=== PATIENT | female | born 1990 | race Caucasian/White ===

== ENCOUNTER 2022-12-04 12:42 | Emergency (ER) | payer BC ==
[2022-12-04] MEDS ORDERED: SODIUM CHLORIDE 0.9% 1,000 ML IV STA (13:07)
--- NOTE | 2022-12-04 13:22 | ED Physician Documentation ---
PD HPI CHEST PAIN - Stated complaint Stated Complaint: CHEST PX - Chief complaint Chief Complaint: Cardiac - History obtained from History obtained from: Patient - Additional information Additional information: Patient is a 32-year-old female presenting for evaluation of chest pain. She was recently found to have frequent PVCs and is scheduled to see an support services manager on Thursday at [facility].Patient reports her chest pain started when she woke up this morning at 5:00. It feels like a sharp pain in the left side of her chest and it has been constant since she woke at 5 AM without any periods where she has not felt the pain. It does not radiate elsewhere. Nothing makes it better or worse.She denies a prior history of chest pains or similar symptoms. She denies associated dizziness, difficulty breathing, nausea, vomiting. Earlier this year she was being evaluated by her PCP and an annual exam when she was asked about an irregular heartbeat. She was then sent to a marine steam fitter who noted that she was having PVCs. She had a Holter monitor which showed that she was having PVCs approximately 25% of the time. In late October she had a treadmill stress test and echo which she stat es had no abnormalities. She was started on metoprolol 25 mg twice daily but this dose was making her feel lightheaded so they have reduce the dose to 12.5 mg twice daily which she has been taking for the past 2 weeks.She denies recent illness, caffeine use, alcohol use, cold medication use, vomiting, diarrhea.She did send a message to her marine steam fitter today at [place]. Auto Body Repairman name is Dr. Regulo Brooks. Review of Systems Constitutional: denies: Fever Cardiac: reports: Chest pain / pressure, Palpitations Respiratory: denies: Dyspnea GI: denies: Abdominal Pain, Vomiting Musculoskeletal: denies: Back pain Neurologic: denies: Headache PD PAST MEDICAL HISTORY - Allergies Allergies/Adverse Reactions: Allergies Allergy/AdvReac Type Severity Reaction Status Date / Time No Known Drug Allergies Allergy Verified 12/04/22 12:53 PD ED PE NORMAL - General General: Alert and oriented X 3, No acute distress, Well developed/nourished - HEENT HEENT: Atraumatic - Neck Neck: Supple, no meningeal sign - Cardiac Cardiac: No murmur, Strong equal pulses, Other (Regular rhythm, normal rate) - Respiratory Respiratory: No respiratory distress, Clear bilaterally - Abdomen Abdomen: Soft, Non tender, Non distended - Derm Derm: Warm and dry - Extremities Extremities: No edema, No calf tenderness / cord Results - Vitals Vitals: Vital Signs - 24 hr 12/04/22 12/04/22 12/04/22 12:49 13:36 14:56 Temperature 37.0 C Heart Rate 78 84 83 Respiratory 20 20 23 Rate Blood Pressure 126/78 125/86 H O2 Saturation 98 100 100 Oxygen O2 Source Room air - EKG (time done) 1247 EKG releavant findings:: EKG personally interpreted by author of this note. Relevant findings are: Rate 90, sinus rhythm with ventricular bigeminy, no STEMI, no prior for comparison Rhythm: NSR Ischemia: T wave inversion (V1, V2). No: ST elevation c/w ischemia Other comments: Other comments (Bigeminy) Compare to prior EKG: Old EKG unavailable - Labs Labs: Laboratory Tests 12/04/22 12/04/22 12/04/22 13:28 13:28 13:28 WBC 8.0 RBC 4.89 Hgb 14.7 Hct 43.1 MCV 88.1 MCH 30.1 MCHC 34.1 RDW 12.0 Plt Count 226 MPV 9.3 Neut # (Auto) 5.6 Lymph # (Auto) 2.0 [place] # (Auto) 0.4 Eos # (Auto) 0.0 Baso # (Auto) 0.0 Absolute Nucleated RBC 0.00 Nucleated RBC % 0.0 Sodium 136 Potassium 3.9 Chloride 107 Carbon Dioxide 23 Anion Gap 6.0 BUN 11 Creatinine 0.7 Estimated GFR (MDRD) 97 Glucose 196 H Calcium 9.4 Magnesium 2.0 Total Bilirubin 0.8 AST 20 ALT 17 Alkaline Phosphatase 48 Troponin I High Sens < 2.3 L Total Protein 7.6 Albumin 4.0 Globulin 3.6 Albumin/Globulin Ratio 1.1 TSH Serum HCG, Qual 12/04/22 12/04/22 13:28 13:28 WBC RBC Hgb Hct MCV MCH MCHC RDW Plt Count MPV Neut # (Auto) Lymph # (Auto) [place] # (Auto) Eos # (Auto) Baso # (Auto) Absolute Nucleated RBC Nucleated RBC % Sodium Potassium Chloride Carbon Dioxide Anion Gap BUN Creatinine Estimated GFR (MDRD) Glucose Calcium Magnesium Total Bilirubin AST ALT Alkaline Phosphatase Troponin I High Sens Total Protein Albumin Globulin Albumin/Globulin Ratio TSH 2.22 Serum HCG, Qual NEGATIVE PD Medical Decision Making - ED course Complexity details: reviewed results, d/w patient ED course: Patient is a 32-year-old female presenting for evaluation of chest pain. She has recently undergone evaluations for frequent PVCs.Her vital signs are stable. Her EKG demonstrates ventricular bigeminy. Her labs were obtained including electrolytes and TSH and troponin which were unremarkable. She has a negative troponin in the setting of pain for greater than 6 hours. She also has no known risk factors for ACS and has had unremarkable recent outpatient testing including a negative stress treadmill test and echocardiogram. She has not had other episodes of chest pain to suggest that this is unstable angina. She has a PERC negative. I doubt a dissection as pain is not migratory and very localized to a specific area.I reviewed her chest x-ray and do not see signs of an enlarged heart or consolidation. I did speak with her marine steam fitter. She is scheduled for an outpatient evaluation in a few days for possible PVC ablation which is what he feels she needs. He also agrees that this is likely not ischemic or cardiac chest pain. He recommends patient continue with her metoprolol.Patient denies any change in her symptoms here.She remains having of frequent PVCs on the cafeteria monitor. Per her marine steam fitter, she was noted to have bigeminy on outpatient evaluations as well. Patient is comfortable with plan for discharged. However she is also advised on strict return precautions if her symptoms worsen or if She develops new symptoms. 1453 - D/W Dr. Brooks (Cardiology)- Reviewed patient's presentation, EKG, labs. He does not feel that this is cardiac/ischemic chest pain That her recent evaluations with a stress test and echocardiogram are also reassuring. He feels that she is stable for discharge and Should follow-up with the support services manager on Thursday. He states that she can continue with her metoprolol dose as is.He is appreciative for the phone call. Departure - Departure Disposition: Home, Self Care Clinical Impression: Chest pain, Ventricular bigeminy Condition: Stable Instructions: Premature Ventricular Contract Tx, ED Chest Pain Atypical Unkn Cause Follow-Up: Regulo Brooks MD [Physician No Access] - Comments: Please continue with taking your metoprolol and keep your follow-up appointment with the support services manager on Thursday.Your labs today are reassuring including normal electrolytes, thyroid test and troponin which is a marker that looks for An issue with your heart. However if it anytime you have new or worsening symptoms please return to the emergency department.Please make sure to get plenty of rest and stay hydrated. Discharge Date/Time: 12/04/22 15:08
--- NOTE | 2022-12-04 13:23 | XRAY Report ---
PROCEDURE: Chest 1 View X-Ray INDICATIONS: CP TECHNIQUE: One view of the chest was acquired. COMPARISON: None. FINDINGS: Surgical changes and devices: None. Lungs and pleura: Low lung volumes. No dense consolidation or pleural effusion. Possible mild opacit y at the right lung base. Mediastinum: Mediastinal contours appear normal. Heart size is normal. Bones and chest wall: No suspicious bony lesions. Overlying soft tissues appear unremarkable. IMPRESSION: Possible mild opacity at right lung base could represent early airspace disease versus atelectasis. C onsider future imaging surveillance to assess for resolution. Low lung volumes. Reviewed by: Rick Flores MD on 12/04/2022 1:22 PM PDT Approved by: Rick Flores MD on 12/04/2022 1:22 PM PDT Station ID: [id number]
[2022-12-04 13:37] LABS: BASOPHILS % (AUTO) 0.2 %; EOSINOPHILS % (AUTO) 0.2 %; HCT - HEMATOCRIT 43.1 % (37.0-47.0); HGB - HEMOGLOBIN 14.7 g/dL (12.0-16.0); LYMPHOCYTES % (AUTO) 24.8 %; MEAN CORPUSCULAR HEMOGLOBIN 30.1 pg (27.0-31.0); MEAN CORPUSCULAR HGB CONC 34.1 g/dL (32.0-36.0); MEAN CORPUSCULAR VOLUME 88.1 fL (81.0-99.0); MEAN PLATELET VOLUME 9.3 fL (7.9-10.8); MONOCYTES # (AUTO) 0.4 10^3/uL (0.0-1.0); MONOCYTES % (AUTO) 5.3 %; NEUTROPHILS # (AUTO) 5.6 10^3/uL (1.5-6.6); NEUTROPHILS % (AUTO) 69.3 %; PLT - PLATELET COUNT 226 10^3/uL (130-450); RED BLOOD COUNT 4.89 10^6/uL (4.20-5.40)
[2022-12-04 13:49] LABS: ALBUMIN/GLOBULIN RATIO 1.1 (1.0-2.2); BILIRUBIN,TOTAL 0.8 mg/dL (0.2-1.0); CALCIUM 9.4 mg/dL (8.5-10.3); CREATININE 0.7 mg/dL (0.4-1.0); POTASSIUM 3.9 mmol/L (3.5-5.0); TOTAL PROTEIN 7.6 g/dL (6.7-8.2)
[2022-12-04 14:33] LABS: HCG,QUALITATIVE BLOOD NEGATIVE
[2022-12-04 14:57] VITALS: BP 125/86
== END 2022-12-04 15:08 | disposition home or self-care (01) ==
LOC: ED 12:42
DX: R00.8 Other abnormalities of heart beat (principal)
CPT/HCPCS: 36415; 80053; 83735; 84443; 84484; 84703; 85025; 93005; 99284

== ENCOUNTER 2023-07-05 21:47 | Emergency (ER) | payer BC ==
[2023-07-05] MEDS ORDERED: SODIUM CHLORIDE 0.9% 1,000 ML IV STA (22:07)
[2023-07-05] MEDS ORDERED: ONDANSETRON 4 MG/2 ML VIAL IVP STA (22:29)
--- NOTE | 2023-07-05 22:33 | XRAY Report ---
PROCEDURE: Chest 1 View X-Ray INDICATIONS: dizzy/palpitations TECHNIQUE: One view of the chest was acquired. COMPARISON: 12/04/2022. FINDINGS: Surgical changes and devices: None. Lungs and pleura: Prominence of the pulmonary interstitium/interstitial opacities. No pleural effusi on or pneumothorax. Mediastinum: Cardiac silhouette is at the upper limits of normal in size. Bones and chest wall: No suspicious bony lesions. Overlying soft tissues appear unremarkable. IMPRESSION: Prominence of the pulmonary interstitium/interstitial opacities are present, which can be seen in the setting of interstitial edema or sequela of viral or typical infection. Reviewed by: Chepe Coombs MD on 07/05/2023 10:31 PM PDT Approved by: Chepe Coombs MD on 07/05/2023 10:31 PM PDT Station ID: [id number]
[2023-07-05 22:38] LABS: BASOPHILS % (AUTO) 0.4 %; HCT - HEMATOCRIT 40.7 % (37.0-47.0); HGB - HEMOGLOBIN 13.7 g/dL (12.0-16.0); LYMPHOCYTES % (AUTO) 55.9 %; MEAN CORPUSCULAR HEMOGLOBIN 30.1 pg (27.0-31.0); MEAN CORPUSCULAR HGB CONC 33.7 g/dL (32.0-36.0); MEAN CORPUSCULAR VOLUME 89.5 fL (81.0-99.0); MEAN PLATELET VOLUME 9.1 fL (7.9-10.8); MONOCYTES % (AUTO) 8.3 %; NEUTROPHILS % (AUTO) 33.3 %; PLT - PLATELET COUNT 263 10^3/uL (130-450); RED BLOOD COUNT 4.55 10^6/uL (4.20-5.40); RED CELL DISTRIBUTION WIDTH 11.7 % (12.0-15.0); WHITE BLOOD COUNT 9.7 x10^3/uL (4.8-10.8)
--- NOTE | 2023-07-05 22:47 | ED Physician Documentation ---
History of Present Illness - Stated complaint Stated Complaint: DIZZY, RHR after taking edible - Chief complaint Chief Complaint: Neuro - History obtained from History obtained from: Patient - Additonal information Additional information: Patient is a 32-year-old female with a history of PVCs presenting for evaluation of heart racing, dizziness, nausea, [place] sensation starting around 8:00. Patient states that she ate an edible at this time and took a full 1. Yesterday she took half of 1 to help her sleep and did not have the symptoms. She reports feeling her heart racing. She does have a history of PVCs and has a public health specialist at [place]. She saw electrophysiology earlier this year and they had her stop metoprolol. She also admits to a small glass of wine this evening. Denies recent illness. No chest pain or shortness of air. Review of Systems Constitutional: denies: Fever Cardiac: reports: Palpitations. denies: Chest pain / pressure Respiratory: denies: Dyspnea, Cough GI: reports: Nausea. denies: Abdominal Pain Neurologic: denies: Syncope PD PAST MEDICAL HISTORY - Present Medications Home Medications: Ambulatory Orders Medication Instructions Recorded Confirmed No Known Home Medications 07/05/23 07/05/23 - Allergies Allergies/Adverse Reactions: Allergies Allergy/AdvReac Type Severity Reaction Status Date / Time No Known Drug Allergies Allergy Verified 07/05/23 21:57 PD ED PE NORMAL - General General: Alert and oriented X 3, No acute distress, Well developed/nourished - HEENT HEENT: Atraumatic - Neck Neck: Supple, no meningeal sign - Cardiac Cardiac: Strong equal pulses, Other (Tachycardic, irregular) - Respiratory Respiratory: No respiratory distress, Clear bilaterally - Abdomen Abdomen: Soft, Non tender, Non distended - Derm Derm: Warm and dry - Extremities Extremities: No edema, No calf tenderness / cord - Neuro Neuro: Normal speech Results - Vitals Vitals: Vital Signs - 24 hr 07/05/23 07/05/23 07/05/23 21:52 22:30 23:25 Temperature 36.0 C L Heart Rate 112 H 96 78 Respiratory 18 21 17 Rate Blood Pressure 156/99 H 121/93 H 118/68 O2 Saturation 100 100 97 07/06/23 07/06/23 00:00 00:31 Temperature Heart Rate 77 93 Respiratory 20 22 Rate Blood Pressure 102/62 132/74 H O2 Saturation 95 97 Oxygen O2 Source Room air - EKG (time done) 2241 EKG releavant findings:: EKG personally interpreted by author of this note. Relevant findings are: Rate 83, normal sinus rhythm, frequent PVCs, no STEMI - Labs Labs: Laboratory Tests 07/05/23 07/05/23 22:30 22:30 WBC 9.7 RBC 4.55 Hgb 13.7 Hct 40.7 MCV 89.5 MCH 30.1 MCHC 33.7 RDW 11.7 L Plt Count 263 MPV 9.1 Neut # (Auto) Not Reportable Lymph # (Auto) Not Reportable [place] # (Auto) Not Reportable Eos # (Auto) Not Reportable Baso # (Auto) Not Reportable Absolute Nucleated RBC Not Reportable Total Counted 100 Band Neuts % (Manual) 1 Reactive Lymphs % (Man) 2 Abnorm Lymph % (Manual) 0 Nucleated RBC % Not Reportable Neutrophils # (Manual) 2.5 Lymphocytes # (Manual) 6.5 H Monocytes # (Manual) 0.6 Eosinophils # (Manual) 0.1 Basophils # (Manual) 0.0 Differential Comment MANUAL DIFFERENTIAL Platelet Estimate NORMAL (130-450,000) Platelet Morphology NORMAL APPEARANCE RBC Morph Micro Appear NORMAL APPEARANCE Sodium 133 L Potassium 2.9 L Chloride 102 Carbon Dioxide 26 Anion Gap 5.0 L BUN 17 Creatinine 0.9 Estimated GFR (MDRD) 73 L Glucose 162 H Calcium 9.4 Magnesium 1.6 L Total Bilirubin 0.3 AST 10 ALT 8 L Alkaline Phosphatase 55 Total Protein 7.1 Albumin 4.3 Globulin 2.8 Albumin/Globulin Ratio 1.5 PD Medical Decision Making - ED course Complexity details: reviewed results, re-evaluated patient, d/w patient ED course: Patient is a 32-year-old female with a history of PVCs presenting for evaluation of palpitations after eating an edible this evening. She initially was tachycardic but EKG demonstrates a sinus rhythm with normal rate and with frequent PVCs. No chest pain to suggest ACS or symptoms to suggest a PE. CBC, chemistries were obtained and reviewed with potassium of 2.9 and magnesium of 1.6. Replacement was given. Patient is feeling better after IV fluids, IV Zofran and Reglan for nausea. She is able to tolerate p.o. Chest x-ray was reviewed and negative for effusion or focal consolidation. She is counseled heavily on the use of substances that may trigger her PVCs or worsen them. She is feeling much better and is comfortable with plan for discharge. She is counseled on concerning symptoms to return for. Departure - Departure Disposition: 01 Home, Self Care Clinical Impression: Palpitations, PVC (premature ventricular contraction), Hypokalemia, Use of cannabinoid edibles Condition: Stable Instructions: ED Potassium Deficiency, ED Palpitations Comments: You were evaluated for palpitations after trying an edible. Your EKG shows that you are having PVCs but your heart rate has overall been in the normal range. Your potassium level was low and we did give you potassium replacement. Please consider increasing your potassium intake through foods. I would also recommend close follow-up with your primary care provider. Please avoid edibles in the future as they may cause adverse reactions such as this. Return to the ER with any worsening symptoms. Potassium is widely available in many foods, especially fruits and vegetables. Leafy greens, beans, nuts, dairy foods, and starchy vegetables like winter squash are rich sources. Dried fruits (raisins, apricots) Beans, lentils Potatoes Winter squash (acorn, butternut) Spinach, broccoli Beet greens Avocado Bananas Cantaloupe Oranges, orange juice Coconut water Tomatoes Dairy and plant milks (soy, almond) Yogurt Cashews, almonds Chicken [place] Forms: PCP List Discharge Date/Time: 07/06/23 00:35
[2023-07-05 22:57] LABS: ALBUMIN 4.3 g/dL (3.2-5.5); ALBUMIN/GLOBULIN RATIO 1.5 (1.0-2.2); BILIRUBIN,TOTAL 0.3 mg/dL (0.2-1.0); CALCIUM 9.4 mg/dL (8.5-10.3); CREATININE 0.9 mg/dL (0.6-1.3); MAGNESIUM 1.6 mg/dL (1.7-2.3); POTASSIUM 2.9 mmol/L (3.5-4.5); TOTAL PROTEIN 7.1 g/dL (6.4-8.9)
[2023-07-05 23:00] LABS: ABNORMAL LYMPHS % (MANUAL) 0 %
[2023-07-05 23:02] LABS: BAND NEUTROPHILS % (MANUAL) 1 %; DIFFERENTIAL COMMENT MANUAL DIFFERENTIAL; EOSINOPHILS # (MANUAL) 0.1 10^3/uL (0-0.7); LYMPHOCYTES # (MANUAL) 6.5 10^3/uL (1.5-3.5); LYMPHOCYTES % (MANUAL) 65 %; MONOCYTES # (MANUAL) 0.6 10^3/uL (0.0-1.0); NEUTROPHILS # (MANUAL) 2.5 10^3/uL (1.5-6.6); PLATELET ESTIMATE, MANUAL NORMAL (130-450,000) (NORMAL); PLATELET MORPHOLOGY NORMAL APPEARANCE (NORMAL); RBC MORPHOLOGY (MULTIPLE) NORMAL APPEARANCE (NORMAL); REACTIVE LYMPHS % (MANUAL) 2 %
[2023-07-05] MEDS ORDERED: MAGNESIUM SULFATE 2 GRAM 2 GM/50 ML BAG IV ONE (23:03)
[2023-07-05] MEDS: POTASSIUM CHLORIDE 20 MEQ TABLET PO STA ×2 (23:16→23:25)
[2023-07-05] MEDS ORDERED: METOCLOPRAMIDE 10 MG/2 ML VIAL IVP STA (23:36)
[2023-07-06] MEDS ORDERED: POTASSIUM BICARB 25 MEQ TABLET PO ONE (00:16)
[2023-07-06] MEDS ORDERED: ONDANSETRON ODT 4 MG Prepack 2 TL PRN (00:18)
[2023-07-06 00:37] VITALS: BP 132/74; O2SAT 97
== END 2023-07-06 00:35 | disposition home or self-care (01) ==
LOC: ED 21:47
DX: E87.6 Hypokalemia (principal); I49.3 Ventricular premature depolarization; F12.90 Cannabis use, unspecified, uncomplicated
CPT/HCPCS: 36415; 71045; 80053; 83735; 85025; 93005; 96365; 96375; 99284; A9270; J2765

== ENCOUNTER 2024-03-11 22:05 | Emergency (ER) | payer BC ==
[2024-03-11 22:55] LABS: BASOPHILS % (AUTO) 0.4 %; EOSINOPHILS # (AUTO) 0.2 10^3/uL (0.0-0.7); EOSINOPHILS % (AUTO) 2.6 %; HCT - HEMATOCRIT 39.6 % (37.0-47.0); HGB - HEMOGLOBIN 13.2 g/dL (12.0-16.0); LYMPHOCYTES # (AUTO) 2.9 10^3/uL (1.5-3.5); LYMPHOCYTES % (AUTO) 41.8 %; MEAN CORPUSCULAR HEMOGLOBIN 30.2 pg (27.0-31.0); MEAN CORPUSCULAR HGB CONC 33.3 g/dL (32.0-36.0); MEAN CORPUSCULAR VOLUME 90.6 fL (81.0-99.0); MEAN PLATELET VOLUME 8.5 fL (7.9-10.8); MONOCYTES # (AUTO) 0.6 10^3/uL (0.0-1.0); NEUTROPHILS # (AUTO) 3.3 10^3/uL (1.5-6.6); NEUTROPHILS % (AUTO) 46.9 %; PLT - PLATELET COUNT 261 10^3/uL (130-450); RED BLOOD COUNT 4.37 10^6/uL (4.20-5.40); RED CELL DISTRIBUTION WIDTH 11.9 % (12.0-15.0)
--- NOTE | 2024-03-11 22:58 | XRAY Report ---
PROCEDURE: Chest 1V INDICATIONS: Chest pain TECHNIQUE: One view of the chest was acquired. COMPARISON: 07/05/2023 FINDINGS: Surgical changes and devices: None. Lungs and pleura: No pleural effusions or pneumothorax. Lungs are clear. Mediastinum: Mediastinal contours appear normal. Heart size is normal. Bones and chest wall: No suspicious bony lesions. Overlying soft tissues appear unremarkable. IMPRESSION: No acute cardiopulmonary process. Reviewed by: Misha Payne MD on 03/11/2024 10:57 PM PDT Approved by: Misha Payne MD on 03/11/2024 10:57 PM PDT Station ID: [id number]
[2024-03-11 23:14] LABS: ALBUMIN 4.1 g/dL (3.2-5.5); ALBUMIN/GLOBULIN RATIO 1.2 (1.0-2.2); ALKALINE PHOSPHATASE 49 IU/L (42-121); ALT ALANINE AMINOTRANSFERASE 15 IU/L (10-60); AST ASPARTATE AMINOTRANSFERASE 15 IU/L (10-42); BILIRUBIN,TOTAL 0.2 mg/dL (0.2-1.0); BUN - BLOOD UREA NITROGEN 11 mg/dL (6-20); CALCIUM 9.7 mg/dL (8.5-10.3); CARBON DIOXIDE - CO2 28 mmol/L (21-32); CHLORIDE 105 mmol/L (101-111); CREATININE 0.8 mg/dL (0.6-1.3); GFR - MDRD 83 (>89); GLUCOSE 124 mg/dL (74-104); LIPASE 74 U/L (11-82); POTASSIUM 3.9 mmol/L (3.5-4.5); SODIUM 138 mmol/L (135-145); TOTAL PROTEIN 7.5 g/dL (6.4-8.9)
[2024-03-11 23:15] LABS: TROPONIN I HIGH SENSITIVITY < 2.3 ng/L (2.3-14.8)
--- NOTE | 2024-03-11 23:25 | ED Physician Documentation ---
PD HPI CHEST PAIN - Stated complaint Stated Complaint: CHEST PX - Chief complaint Chief Complaint: Cardiac - History obtained from History obtained from: Patient - Additional information Additional information: HPI from patient. Patient planes of chest heaviness x 1 week, episodic without inciting, exacerbating, ameliorating factors. She has also had throat pain/discomfort over the same timeframe. She says she was seen in a clinic few days ago for these symptoms, no diagnosis at that time. However, she says she was advised to come to the emergency department if her symptoms worsened in any way. She presents due to the chest heaviness having now become joao pain, described as "like a pinch" (per patient), over the past 1 to 2 days. This pain is left of midline, anterior mid/upper chest. Denies leg swelling, denies pleuritic component. Denies shortness of breath, cough, fever. She denies history of similar symptoms. One of her chief concerns is that she is currently undergoing IVF and was specifically warned about ovarian hyperstimulation syndrome and thus to be on particular guard for chest pain. Patient recently had egg retrieval. Review of Systems Cardiac: reports: Chest pain / pressure. denies: Palpitations, Pedal edema, Calf pain Respiratory: denies: Dyspnea, Cough, Hemoptysis GI: denies: Abdominal Pain Musculoskeletal: denies: Extremity swelling PD PAST MEDICAL HISTORY - Past Medical History Cardiovascular: Other - Past Surgical History Past Surgical History: No - Present Medications Home Medications: Ambulatory Orders Medication Instructions Recorded Confirmed No Known Home Medications 07/05/23 07/05/23 - Allergies Allergies/Adverse Reactions: Allergies Allergy/AdvReac Type Severity Reaction Status Date / Time No Known Drug Allergies Allergy Verified 07/05/23 21:57 - Social History Does the pt smoke?: No Smoking Status: Never smoker Does the pt drink ETOH?: Yes - Immunizations Immunizations are current?: Yes PD ED PE NORMAL - Vitals Vital signs reviewed: Yes - General General: Alert and oriented X 3, No acute distress, Well developed/nourished - Cardiac Cardiac: RRR, No murmur, No gallop, No rub - Respiratory Respiratory: No respiratory distress, Clear bilaterally - Extremities Extremities: No edema Results - Vitals Vitals: Vital Signs - 24 hr 03/11/24 03/12/24 22:13 01:00 Temperature 36.9 C Heart Rate 101 H 77 Respiratory 18 21 Rate Blood Pressure 158/98 H 143/96 H O2 Saturation 99 97 Oxygen O2 Source Room air - EKG (time done) No standard instances EKG releavant findings:: EKG personally interpreted by author of this note. Relevant findings are: Rate: Rate (enter#) (82) Rhythm: NSR [place]: Normal Intervals: Normal OR QRS: Normal Ischemia: Normal ST segments Other comments: Other comments (PACs, PVCs) - Labs Labs: Laboratory Tests 03/11/24 03/11/24 22:52 22:52 WBC 7.0 RBC 4.37 Hgb 13.2 Hct 39.6 MCV 90.6 MCH 30.2 MCHC 33.3 RDW 11.9 L Plt Count 261 MPV 8.5 Neut # (Auto) 3.3 Lymph # (Auto) 2.9 [place] # (Auto) 0.6 Eos # (Auto) 0.2 Baso # (Auto) 0.0 Absolute Nucleated RBC 0.00 Nucleated RBC % 0.0 Sodium 138 Potassium 3.9 Chloride 105 Carbon Dioxide 28 Anion Gap 5.0 L BUN 11 Creatinine 0.8 Estimated GFR (MDRD) 83 L Glucose 124 H Calcium 9.7 Total Bilirubin 0.2 AST 15 ALT 15 Alkaline Phosphatase 49 Troponin I High Sens < 2.3 L Total Protein 7.5 Albumin 4.1 Globulin 3.4 Albumin/Globulin Ratio 1.2 Lipase 74 - Rads (name of study) cxr Relevant Findings:: Prelim report reviewed, See rad report CTA chest (PE study) Relevant Findings:: Prelim report reviewed, See rad report PD Medical Decision Making - ED course Complexity details: reviewed results, re-evaluated patient, considered differential, d/w patient ED course: Normal CBC except for insignificant/noncontributory finding of low RDW. Normal high-sensitivity troponin. Normal chest x-ray. Unremarkable EKG (PAC, PVC noted). Unremarkable ER abdominal panel. Using PERC, two criteria are positive: patient has been taking exogenous estrogen for her IVF, and although heart rate is only 101, this is still above the cutoff of 100 bpm. We discussed testing options for PE, and I am recommending CTA chest. Patient says she was very specifically warned about potential, albeit low, for blood clots going into the IVF process and thus she shares similar concern and agrees with CTA chest. Fortunately, there are no abnormalities on this study, including no evidence of PE nor any other cardiopulmonary abnormality. Results discussed with patient, return precautions reviewed. The etiology of patient's symptoms not apparent at this time. Departure - Departure Disposition: 01 Home, Self Care Clinical Impression: Chest pain Condition: Good Instructions: ED Chest Pain Atypical Unkn Cause Comments: There were no concerning nor diagnostic findings on tonight's blood tests, chest x-ray, EKG (a few extra beats (PVC, PAC)), CT scan of your chest. The cause of your chest pain is not apparent at this time. Contact your primary care provider when their office is next open to arrange for the next available appointment for reevaluation. Discharge Date/Time: 03/12/24 01:12
[2024-03-12] MEDS ORDERED: iohexoL-300 100 ML VIAL ONE (00:03)
[2024-03-12] MEDS: iohexoL-300 100 ML VIAL IVP ONE (00:21)
--- NOTE | 2024-03-12 00:42 | CT Report ---
PROCEDURE: Angio Chest INDICATIONS: chest pain CONTRAST: 80ml [id number] TECHNIQUE: After the administration of intravenous contrast, 2 mm axial images were acquired from the pulmonary apices to the posterior costophrenic angles during the arterial phase. In addition, 1 mm lung kernel and 5 mm soft tissue kernel reconstructions were performed. 3-dimensional coronal oblique maximum int ensity projection (MIP) reformats, 8 mm axial MIP, and 5 mm coronal and sagittal MPR reformats were t hen performed through the thorax. For radiation dose reduction, the following was used: automated exp osure control, adjustment of mA and/or kV according to patient size. COMPARISON: Chest radiograph from same day. FINDINGS: Image quality: Diagnostic. Large vessels: No filling defects within the opacified pulmonary arteries, accounting for motion and contrast timing. No evidence of acute aortic syndrome or aortic aneurysm. Lungs and pleura: No consolidation. No pleural effusions. No pneumothorax. No suspicious pulmonary n odules which require follow up. Mediastinum: Heart size is normal. No pericardial effusion. No large vessel abnormality. No mediastin al adenopathy by size criteria. Chest wall and lower neck: Thyroid is unremarkable. No axillary or supraclavicular adenopathy by size . Bones: No aggressive osseous abnormality. Upper Abdomen: Unremarkable. IMPRESSION: No pulmonary embolus. No acute cardiopulmonary abnormalities. Reviewed by: Misha Payne MD on 03/12/2024 12:41 AM PDT Approved by: Misha Payne MD on 03/12/2024 12:41 AM PDT Station ID: [id number]
[2024-03-12 01:12] VITALS: BP 143/96; O2SAT 97
== END 2024-03-12 01:12 | disposition home or self-care (01) ==
LOC: ED 22:05
DX: R07.9 Chest pain, unspecified (principal)
CPT/HCPCS: 36415; 71045; 71275; 80053; 83690; 84484; 85025; 93005; 99284; Q9967

== ENCOUNTER 2024-05-03 03:10 | Emergency (ER) | payer BC ==
[2024-05-03 04:07] LABS: BASOPHILS % (AUTO) 0.4 %; EOSINOPHILS # (AUTO) 0.3 10^3/uL (0.0-0.7); HCT - HEMATOCRIT 39.2 % (37.0-47.0); HGB - HEMOGLOBIN 13.2 g/dL (12.0-16.0); LYMPHOCYTES # (AUTO) 3.1 10^3/uL (1.5-3.5); LYMPHOCYTES % (AUTO) 34.5 %; MEAN CORPUSCULAR HEMOGLOBIN 30.5 pg (27.0-31.0); MEAN CORPUSCULAR HGB CONC 33.7 g/dL (32.0-36.0); MEAN CORPUSCULAR VOLUME 90.5 fL (81.0-99.0); MEAN PLATELET VOLUME 8.9 fL (7.9-10.8); MONOCYTES # (AUTO) 0.6 10^3/uL (0.0-1.0); MONOCYTES % (AUTO) 6.5 %; NEUTROPHILS % (AUTO) 55.4 %; PLT - PLATELET COUNT 223 10^3/uL (130-450); RED BLOOD COUNT 4.33 10^6/uL (4.20-5.40); RED CELL DISTRIBUTION WIDTH 11.7 % (12.0-15.0)
[2024-05-03 04:20] LABS: ALBUMIN 3.6 g/dL (3.2-5.5); ALBUMIN/GLOBULIN RATIO 1.2 (1.0-2.2); BILIRUBIN,TOTAL 0.4 mg/dL (0.2-1.0); CALCIUM 8.9 mg/dL (8.5-10.3); CREATININE 0.7 mg/dL (0.6-1.3); POTASSIUM 3.9 mmol/L (3.5-4.5); TOTAL PROTEIN 6.5 g/dL (6.4-8.9)
--- NOTE | 2024-05-03 05:56 | ED Physician Documentation ---
PD HPI FEMALE - Stated complaint Stated Complaint: /VOMITING - Chief complaint Chief Complaint: Abd Pain - History obtained from History obtained from: Patient - Additional information Additional information: HPI from patient. Patient is undergoing IVF and yesterday she had her most recent ultrasound ([facility] in [place]) which, per patient, showed single 6w4d IUP with reassuring parameters. At approximately 2:30 AM this morning, she woke from sleep with pain across her lower back that radiates around to the anterior pelvis with vaginal bleeding. She did not see any clots nor tissue passed. This is her first . Uncertain of blood type. PD PAST MEDICAL HISTORY - Past Medical History Past Medical History: Yes Cardiovascular: Other - Past Surgical History Past Surgical History: No - Present Medications Home Medications: Ambulatory Orders Medication Instructions Recorded Confirmed Levothyroxine [Synthroid] 25 mcg PO QDAC 05/03/24 05/03/24 Progesterone! 0 mg IM DAILY 05/03/24 05/03/24 estradioL [Vivelle-Dot] 1 each TD Q2D 05/03/24 05/03/24 - Allergies Allergies/Adverse Reactions: Allergies Allergy/AdvReac Type Severity Reaction Status Date / Time No Known Drug Allergies Allergy Verified 07/05/23 21:57 - Social History Does the pt smoke?: No Smoking Status: Never smoker Does the pt drink ETOH?: Yes - Immunizations Immunizations are current?: Yes PD ED PE NORMAL - Vitals Vital signs reviewed: Yes - General General: Alert and oriented X 3, No acute distress, Well developed/nourished - Abdomen Abdomen: Normal bowel sounds, Soft, Non tender, Non distended - Back Back: No CVA TTP Results - Vitals Vitals: Oxygen O2 Source Room air - Labs Labs: Laboratory Tests 05/03/24 05/03/24 05/03/24 04:00 04:00 04:00 WBC 9.0 RBC 4.33 Hgb 13.2 Hct 39.2 MCV 90.5 MCH 30.5 MCHC 33.7 RDW 11.7 L Plt Count 223 MPV 8.9 Neut # (Auto) 5.0 Lymph # (Auto) 3.1 [place] # (Auto) 0.6 Eos # (Auto) 0.3 Baso # (Auto) 0.0 Absolute Nucleated RBC 0.00 Nucleated RBC % 0.0 Sodium 135 Potassium 3.9 Chloride 105 Carbon Dioxide 25 Anion Gap 5.0 L BUN 9 Creatinine 0.7 Estimated GFR (MDRD) 96 Glucose 109 H Calcium 8.9 Total Bilirubin 0.4 AST 12 ALT 12 Alkaline Phosphatase 49 Total Protein 6.5 Albumin 3.6 Globulin 2.9 Albumin/Globulin Ratio 1.2 Lipase 39 Blood Type O POSITIVE - Rads (name of study) 1st trimester OB US Relevant Findings:: Prelim report reviewed, See rad report PD Medical Decision Making - ED course Complexity details: reviewed results, re-evaluated patient, considered differential, d/w patient ED course: 1st trimester OB US shows living IUP 6w5d with reassuring parameters. Note is made of perigestational hemorrhage and small uterine fibroid. Results d/w patient; she says she has been told of the uterine fibroid before. Unremarkable blood tests including CBC. blood type is O+. Diagnosis of threatened miscarriage d/w patient and return precautions are reviewed. Advised to contact her marketing professor this morning to discuss results and ascertain further recommendations regarding follow up Departure - Departure Disposition: 01 Home, Self Care Clinical Impression: Threatened miscarriage Condition: Good Instructions: ED Miscarriage Poss Comments: There were no concerning findings on tonight's blood tests. The ultrasound shows a small amount of bleeding adjacent to the but otherwise reassuring ultrasound (6 weeks 5 day with normal heart rate). The finding of bleeding on the ultrasound is called a subchorionic hemorrhage, the significance is unclear in these cases unless it is a large amount of blood; the bleeding on the ultrasound was small (2.1 cm x 1.9 cm x 1.8 cm). There was also a finding on the ultrasound of a small fibroid (2.2 cm x 1.8 cm), which is a benign mass and is not a concerning nor contributory finding. Contact your marketing professor group to discuss these results and arrange for follow- up/reevaluation. Discharge Date/Time: 05/03/24 09:15
[2024-05-03 08:00] VITALS: O2SAT 100
--- NOTE | 2024-05-03 08:58 | Ultrasound Report ---
PROCEDURE: OB 1st Trimester INDICATIONS: vaginal bleeding OUTSIDE/PRIOR DATING DATA: Last menstrual period (LMP): 03/16/2024. LMP-based estimated date of delivery (EDER): 12/21/2024. First dating scan (date and location): 05/03/2024. Estimated date of delivery (EDER) from first dating scan: 12/21/2024. TECHNIQUE: Real-time scanning was performed of the fetus and maternal pelvic organs, with image documentation. COMPARISON: None. FINDINGS: Intrauterine gestational sac present. Embryo: [place]-rump length measures 0.76 cm, 6 weeks 5 days Heart rate: 125 bpm. Other: 2.1 x 1.9 x 1.8 cm perigestational fluid collection. Measurement variability in dating: +/- 4 weeks by LMP, +/- 7 days by mean sac diameter (use before 6 weeks gestation if crown-rump length not able to be measured), +/- 5 days by crown-rump length (6-12 weeks gestation). Maternal organs: Ovaries appear within normal limits. Fundal fibroid, 2.2 x 1.8 cm. IMPRESSION: 1.. Living early first trimester intrauterine with crown-rump length and heartbeat. 2. Perigestational hemorrhage. 3. Fundal uterine fibroid Reviewed by: Brennen Subramanian MD on 05/03/2024 8:57 AM PDT Approved by: Brennen Subramanian MD on 05/03/2024 8:57 AM PDT Station ID: [id number]
[2024-05-03 09:18] VITALS: BP 143/77
== END 2024-05-03 09:15 | disposition home or self-care (01) ==
LOC: ED 03:10
DX: O20.0 Threatened abortion (principal); O20.8 Other hemorrhage in early pregnancy; O34.11 Maternal care for benign tumor of corpus uteri, first trimester; D25.9 Leiomyoma of uterus, unspecified; Z3A.01 Less than 8 weeks gestation of pregnancy
CPT/HCPCS: 36415; 80053; 83690; 85025; 86900; 86901; 99283; 99284